=== PATIENT | female | born 1975 | race Caucasian/White ===

== ENCOUNTER 2021-11-08 10:11 | Day surgery (SDC) | payer OTHER ==
[~2021-11-08] VITALS: Ht 170.2 cm; Wt 91.8 kg
[~2021-11-08 10:11] MED LIST: FERR325T23 PO; METF-1211 PO; SODIUM CHLORIDE 0.9% 1,000 ML ONE
[2021-11-08] MEDS ORDERED: LIDOCAINE/PF 2% 5 ML VIAL IM ONE (10:12)
[2021-11-08] MEDS ORDERED: PROPOFOL 1% 20 ML VIAL IVP ONE (10:12)
[2021-11-08 10:40] LABS: COVID AG,FIA SOURCE NASOPHARYNGEAL
[2021-11-08] MEDS ORDERED: SODIUM CHLORIDE 0.9% 1,000 ML IV ONE (11:00)
[2021-11-08 11:25] LABS: GLUCOMETER DEV NAME(LOC) SDS.; GLUCOSE,POINT OF CARE 110 MG/DL (70-110)
== END 2021-11-08 14:50 | disposition home or self-care (01) ==
LOC: SURGERY 10:11
PROVIDERS: ATTEND Internal Medicine Gastroenterology
DX: D13.1 Benign neoplasm of stomach (principal); Z79.899 Other long term (current) drug therapy; D50.9 Iron deficiency anemia, unspecified; E11.9 Type 2 diabetes mellitus without complications; Z98.890 Other specified postprocedural states
CPT/HCPCS: 43251; 82962; 84703; 87426; 88305; 88312; 88313; C9803; J2704; J3490; J7030

== ENCOUNTER 2022-02-07 10:21 | Day surgery (SDC) | payer OTHER ==
[2022-02-06 13:15] LABS: COVID AG,FIA SOURCE NASAL SWAB
[~2022-02-07] VITALS: Ht 162.6 cm; Wt 88.1 kg
[~2022-02-07 10:21] MED LIST changes: -FERR325T23 PO; -SODIUM CHLORIDE 0.9% 1,000 ML ONE
[2022-02-07] MEDS ORDERED: SODIUM CHLORIDE 0.9% 1,000 ML IV ONE (10:30)
[2022-02-07 11:11] LABS: GLUCOMETER DEV NAME(LOC) SDS.; GLUCOSE,POINT OF CARE 113 MG/DL (70-110)
[2022-02-07] MEDS ORDERED: LIDOCAINE/PF 2% 5 ML VIAL IM ONE (12:00)
[2022-02-07] MEDS ORDERED: PROPOFOL 1% 20 ML VIAL IVP ONE (12:00)
== END 2022-02-07 14:35 | disposition home or self-care (01) ==
LOC: SURGERY 10:21
PROVIDERS: ATTEND Internal Medicine Gastroenterology
DX: D13.1 Benign neoplasm of stomach (principal); K31.89 Other diseases of stomach and duodenum; Z79.899 Other long term (current) drug therapy; E11.9 Type 2 diabetes mellitus without complications; D50.9 Iron deficiency anemia, unspecified; Z98.890 Other specified postprocedural states; Z86.010 Personal history of colon polyps; E66.3 Overweight
CPT/HCPCS: 43251; 82962; 84703; 87426; C1769; C9803; J2704; J3490; 88305; 88312; 88313